=== PATIENT | female | born 2005 | race African-American/Black ===

== ENCOUNTER → 2023-09-03 | Emergency (ER) | payer SELFPAY ==
[~2023-09-03] VITALS: Ht 160 cm; Wt 49.0 kg
[2023-09-03 16:38] VITALS: BP 117/85; PULSE 119; RESP 19; TEMP 98.9; O2SAT 98
== END ==
LOC: ER 16:27
DX: M25.571 Pain in right ankle and joints of right foot (principal); Z53.21 Procedure and treatment not carried out due to patient leaving prior to being seen by health care provider